=== PATIENT | female | born 1950 | race Caucasian/White ===

== ENCOUNTER → 2023-11-08 07:36 | Outpatient (REF) | payer MEDICARE, OTHER, SELFPAY | LOC: WDC 07:36 | PROVIDERS: ATTENDING PHYSICIAN Surgery; FAMILY PHYSICIAN Family Medicine | DX: Z12.31 Encounter for screening mammogram for malignant neoplasm of breast (principal) | CPT/HCPCS: 77063; 77067 ==

== ENCOUNTER → 2023-12-08 14:16 | Outpatient (REF) | payer MEDICARE, OTHER, SELFPAY | LOC: HWRAD 14:16 | PROVIDERS: ATTENDING PHYSICIAN Podiatrist Foot & Ankle Surgery; FAMILY PHYSICIAN Family Medicine | DX: M19.071 Primary osteoarthritis, right ankle and foot (principal); M19.072 Primary osteoarthritis, left ankle and foot | CPT/HCPCS: 73630 ==

== ENCOUNTER 2024-03-10 06:09 | Day surgery (SDC) | payer MEDICARE, OTHER, SELFPAY ==
[2024-03-03 07:57] VITALS: BMI 33.6
[2024-03-03 08:46] LABS: Hematocrit 36.1 % (37.0-47.0); Hemoglobin 12.1 g/dL (12.0-16.0); Mean Corp Hgb Conc. 33.5 g/dL (33.0-37.0); Mean Corpuscular Hgb 26.7 pg (27.0-31.0); Mean Corpuscular Volume 79.7 fL (81.0-99.0); Mean Platelet Volume 9.5 fL (7.4-10.4); Platelet Count 324 10^3/uL (130-400); Red Blood Cell Count 4.53 10^6/uL (4.20-5.40); Red Cell Dist. Width 14.8 % (11.5-14.5); White Blood Cell Count 6.8 10^3/uL (4.8-10.8)
[2024-03-03 09:16] LABS: Blood Urea Nitrogen 36 mg/dl (7-17); Calcium 9.1 mg/dl (8.4-10.2); Carbon Dioxide 30 mmol/L (22-30); Chloride 101 mmol/L (98-107); Estimated Creatinine Clearance 59 ml/min; Glucose 104 mg/dl (70-99); Potassium 3.3 mmol/L (3.5-5.1); Sodium 145 mmol/L (135-145); eGFR > 60.00
--- NOTE | 2024-03-06 13:23 | PTCARENOTE ---
Shira and Carmelina in offices made aware of K 3.3 from 03/03/24.
--- NOTE | 2024-03-06 14:31 | PTCARENOTE ---
Dr. Bedoya made aware K 3.3, no further action requested.
[2024-03-10] VITALS (14 sets, daily range): BP systolic 105–148; BP diastolic 50–67; BMI 33.6
[2024-03-10] MEDS: TYLENOL 1000 MG PO (06:48)
[2024-03-10] MEDS: Pyridium 200 MG PO (06:48)
[2024-03-10] MEDS: NORMOSOL-R/PLASMALYTE-A 1000 IV (06:56)
[2024-03-10] MEDS: EMEND 40 MG PO (07:13)
--- NOTE | 2024-03-10 10:44 | W.IMMPOSTOP ---
Surgical Immed Post Op Note
-
Primary Surgeon: Nasima
Assisting: Domonique HUTCHINSON
Pre-op Diagnosis: Incarcerated umbilical hernia, left inguinal hernia
Post-op Diagnosis: Same
Procedure Performed:Robot assisted laparoscopic repair of incarcerated umbilical hernia and left inguinal hernia (rTAPP)
Anesthesia Type: GETA + TAP block
Specimen / Cultures: None
Estimated Blood Loss: 10cc
Complications: None immediate
Operative Findings: Left femoral hernia with fatty contents, 1.2cm incarcerated umbilical hernia repair
--- NOTE | 2024-03-10 11:06 | OR.RPT ---
Operative Report
Operative Report
Primary Surgeon: Nasima
Assisting: Domonique HUTCHINSON
Pre-op Diagnosis: Incarcerated umbilical hernia, left inguinal hernia
Post-op Diagnosis: Same
Procedure Performed:Robot assisted laparoscopic repair of incarcerated umbilical hernia and left inguinal hernia (rTAPP)
Anesthesia Type: GETA + TAP block
Specimen / Cultures: None
Estimated Blood Loss: 10cc
Complications: None immediate
Operative Findings: Left femoral hernia with fatty contents, 1.2cm incarcerated umbilical hernia repair
Date of surgery: 03/10/24
Indications:� This 73F developed symptomatic umbilical hernia. On imaging and exam a left inguina hernia was identified. She was also diagnosed with cystocele, rectocele and uterovaginal prolapse. [employer]er planned concurrent repair. She asked that we
repair both hernias today. Robot assisted laparoscopic repair was planned.
Description of procedure:� The patient was taken to the operating room and positioned into supine position. The patient�s abdomen was prepped and draped in standard sterile fashion. A time-out was completed verifying correct patient, procedure,
site, positioning, and implants and special equipment prior to beginning this procedure.� A stab incision was made in the left upper quadrant, a Veress needle was inserted and proper position was confirmed by aspiration and saline drop test.
Following this, pneumoperitoneum was created with insufflation of carbon dioxide to 12 mmHg. Then a 8mm robotic trocar was inserted above and to the left of the umbilicus. A laparoscope was inserted and the area of initial trocar entry and Veress
needle placement were both inspected and no injuries were found. Two 8mm trocars were then placed lateral to the rectus sheath under direct visualization.
Both inguinal regions were inspected and the median umbilical ligament, medial umbilical ligament, and lateral umbilical fold were identified. Attention was turned to the left groin where a defect was identified. The peritoneum was incised
transversely above the defect and a flap was developed in the caudad direction. Ace�s ligament was identified ultimately dissected to its junction with the iliac vein and the space of Retzius was developed bluntly.� The dissection was continued
inferiorly to the iliopubic tract, with care taken to avoid injury to the femoral branch of the genitofemoral nerve and the lateral femoral cutaneous nerve. The round ligament was sacrificed low near its interface with the peritoneum.
The direct space was inspected and a hernia was not identified. The femoral space was inspected a defect was identified, fatty contents were reduced from this space with gentle traction.� The indirect space was inspected and no hernia was
identified. The canal was inspected and no cord lipoma was identified.
Extra large left MID 3D max mesh was passed through a trocar. The mesh was placed into the preperitoneal space and moved into position to lay flat and completely cover the direct, indirect, and femoral spaces with overlap at the midline. The mesh
was secured into place using 2-0 vicryl suture to Ace�s ligament medially and laterally. Care was taken to avoid the inferolateral triangles containing the iliac vessels and genital nerves. The peritoneal flap was closed over the mesh and secured
with 2-0 monocryl stratafix suture in similar positions of safety. A 14g angiocath was used to decompress the preperitoneal space revealing good seal and all mesh in good position without folding or curling.
Attention was turned to the umbilicus. The peritoneum was incised transversely several cm superior to the defect. A flap was developed bilaterally and in caudad direction. The defect measured as above, incarcerated fat was reduced. The defect was
closed with 0 PDS stratafix suture. An 8cm round bard soft mesh was passed into the abdomen and placed flat under the defect. It was secured to the abdominal wall with 2-0 vicryl suture under the defect and at the four corners. The flap was closed
over the mesh and secured with 2-0 monocryl stratafix suture. A transversus abdominis plane block was performed under laparoscopic vision with marcaine./decadron.
After ensuring adequate hemostasis, the trocars were removed and the pneumoperitoneum allowed to escape. The trocar incisions were closed at the skin level using 4-0 monocryl and topical skin adhesive. All counts were correct and the patient
tolerated the procedure well and was taken to the postanesthesia care unit in stable condition.
The assistance of Domonique TURPIN was required due to the complexity of the procedure. During the procedure she assisted with retraction, resection, and closure of the wound.
[2024-03-10] MEDS: TYLENOL 650 MG PO (14:12)
== END 2024-03-10 15:05 | disposition home or self-care (01) ==
LOC: SDS 06:09
PROVIDERS: ATTENDING PHYSICIAN Obstetrics & Gynecology; FAMILY PHYSICIAN Family Medicine; OTHER PHYSICIAN Obstetrics & Gynecology; OTHER PHYSICIAN Radiology Radiation Oncology; OTHER PHYSICIAN Surgery
DX: N81.3 Complete uterovaginal prolapse (principal); N39.3 Stress incontinence (female) (male); K42.0 Umbilical hernia with obstruction, without gangrene; K40.90 Unilateral inguinal hernia, without obstruction or gangrene, not specified as recurrent; N95.2 Postmenopausal atrophic vaginitis
CPT/HCPCS: 57282; 49592; 49650; 57260; 36415; 80048; 85027; 86850; 86900; 86901; 93005; C1781

== ENCOUNTER → 2024-05-08 09:33 | Outpatient (REF) | payer MEDICARE, OTHER, SELFPAY | LOC: MRI 3T 09:33 | PROVIDERS: ATTENDING PHYSICIAN Surgery; FAMILY PHYSICIAN Family Medicine | DX: R92.2 Inconclusive mammogram (principal); Z85.3 Personal history of malignant neoplasm of breast | CPT/HCPCS: 77049; A9585 ==

== ENCOUNTER → 2024-07-31 08:55 | Outpatient (REF) | payer MEDICARE, OTHER, SELFPAY | LOC: HWRAD 08:55 | PROVIDERS: ATTENDING PHYSICIAN Radiology Radiation Oncology; FAMILY PHYSICIAN Family Medicine; REFERRING PHYSICIAN Surgery | DX: Z92.21 Personal history of antineoplastic chemotherapy (principal); Z78.0 Asymptomatic menopausal state | CPT/HCPCS: 77080 ==

== ENCOUNTER 2024-09-28 06:17 | Day surgery (SDC) | payer MEDICARE, OTHER, SELFPAY | END 2024-09-28 12:18 | disposition home or self-care (01) | LOC: GI 06:17 | PROVIDERS: ATTENDING PHYSICIAN Internal Medicine Gastroenterology | DX: K62.5 Hemorrhage of anus and rectum (principal); K57.30 Diverticulosis of large intestine without perforation or abscess without bleeding; K64.8 Other hemorrhoids | CPT/HCPCS: 45380; 88305 ==

== ENCOUNTER → 2024-11-13 07:35 | Outpatient (REF) | payer MEDICARE, OTHER, SELFPAY | LOC: WDC 07:35 | PROVIDERS: ATTENDING PHYSICIAN Surgery; FAMILY PHYSICIAN Family Medicine | DX: Z12.31 Encounter for screening mammogram for malignant neoplasm of breast (principal) | CPT/HCPCS: 77063; 77067 ==

== ENCOUNTER → 2025-02-09 09:14 | Outpatient (REF) | payer MEDICARE, OTHER, SELFPAY | LOC: WDC 09:14 | PROVIDERS: ATTENDING PHYSICIAN Surgery; FAMILY PHYSICIAN Family Medicine | DX: N63.0 Unspecified lump in unspecified breast (principal) | CPT/HCPCS: 76642 ==

== ENCOUNTER → 2025-05-11 09:56 | Outpatient (REF) | payer MEDICARE, OTHER, SELFPAY | LOC: MRI 3T 09:56 | PROVIDERS: ATTENDING PHYSICIAN Surgery; FAMILY PHYSICIAN Family Medicine | DX: D05.91 Unspecified type of carcinoma in situ of right breast (principal); R92.2 Inconclusive mammogram | CPT/HCPCS: 77049; A9585 ==

== ENCOUNTER → 2025-06-18 11:11 | Outpatient (REF) | payer MEDICARE, OTHER, SELFPAY | LOC: DHSLP 11:11 | PROVIDERS: ATTENDING PHYSICIAN Internal Medicine Critical Care Medicine; FAMILY PHYSICIAN Family Medicine | DX: G47.33 Obstructive sleep apnea (adult) (pediatric) (principal); R09.02 Hypoxemia | CPT/HCPCS: 95800 ==